=== PATIENT | female | born 1960 | race Caucasian/White ===

== ENCOUNTER 2018-10-07 10:14 | Emergency (ER) | payer SELFPAY ==
[2018-10-07 10:21] VITALS: BP 101/66
--- NOTE | 2018-10-07 10:26 | ER Document Report ---
ED Medical Screen (RME) - General Chief Complaint: Fall Injury Stated Complaint: HIP PAIN Time Seen by Provider: 10/07/18 10:24 Mode of Arrival: Wheelchair Information source: Patient TRAVEL OUTSIDE OF THE [place] IN LAST 30 DAYS: No - HPI Patient complains to provider of: fall Onset: Just prior to arrival - pt. pushed to the ground by 2 large dogs earlier this am. No bites. Animal control contacted - Related Data Allergies/Adverse Reactions: No Known Allergies Allergy (Verified 10/07/18 10:15) Physical Exam - Vital signs Vitals: Temp Pulse Resp BP Pulse Ox 97.5 F 66 18 101/66 97 10/07/18 10:20 10/07/18 10:20 10/07/18 10:20 10/07/18 10:20 10/07/18 10:20 Course - Vital Signs Vital signs: Temp Pulse Resp BP Pulse Ox 97.5 F 66 18 101/66 97 10/07/18 10:20 10/07/18 10:20 10/07/18 10:20 10/07/18 10:20 10/07/18 10:20
--- NOTE | 2018-10-07 11:19 | RADIOLOGY REPORT (SQ) ---
EXAM DESCRIPTION: HIP RIGHT AP/LATERAL; RIBS RIGHT W/PA CHEST; KNEE RIGHT 3 VIEWS COMPLETED DATE/TIME: 10/07/2018 11:06 am REASON FOR STUDY: fall COMPARISON: None. FINDINGS: Chest and ribs: Four views chest and right ribs for detail. No clinically localizing inf ormation. Lungs clear. No pneumothorax. No rib fracture. Three views right knee: Degenerative spurring throughout, particularly patellofemoral. No fracture or effusion. Osteopenic. Two views right hip: AP pelvis, frog lateral right hip. Degenerative narrowing left hip. Right hip looks relatively intact with only mild spurring. No fracture or bone lesion. TECHNICAL DOCUMENTATION: JOB ID: [id number] Reading location - IP/workstation name: [email or web address]
--- NOTE | 2018-10-07 11:19 | RADIOLOGY REPORT (SQ) ---
EXAM DESCRIPTION: HIP RIGHT AP/LATERAL; RIBS RIGHT W/PA CHEST; KNEE RIGHT 3 VIEWS COMPLETED DATE/TIME: 10/07/2018 11:06 am REASON FOR STUDY: fall COMPARISON: None. FINDINGS: Chest and ribs: Four views chest and right ribs for detail. No clinically localizing inf ormation. Lungs clear. No pneumothorax. No rib fracture. Three views right knee: Degenerative spurring throughout, particularly patellofemoral. No fracture or effusion. Osteopenic. Two views right hip: AP pelvis, frog lateral right hip. Degenerative narrowing left hip. Right hip looks relatively intact with only mild spurring. No fracture or bone lesion. TECHNICAL DOCUMENTATION: JOB ID: [id number] Reading location - IP/workstation name: [email or web address]
--- NOTE | 2018-10-07 11:19 | RADIOLOGY REPORT (SQ) ---
EXAM DESCRIPTION: HIP RIGHT AP/LATERAL; RIBS RIGHT W/PA CHEST; KNEE RIGHT 3 VIEWS COMPLETED DATE/TIME: 10/07/2018 11:06 am REASON FOR STUDY: fall COMPARISON: None. FINDINGS: Chest and ribs: Four views chest and right ribs for detail. No clinically localizing inf ormation. Lungs clear. No pneumothorax. No rib fracture. Three views right knee: Degenerative spurring throughout, particularly patellofemoral. No fracture or effusion. Osteopenic. Two views right hip: AP pelvis, frog lateral right hip. Degenerative narrowing left hip. Right hip looks relatively intact with only mild spurring. No fracture or bone lesion. TECHNICAL DOCUMENTATION: JOB ID: [id number] Reading location - IP/workstation name: [email or web address]
--- NOTE | 2018-10-07 11:50 | ER Document Report ---
ED Fall - General Chief Complaint: Fall Injury Stated Complaint: HIP PAIN Time Seen by Provider: 10/07/18 10:24 Mode of Arrival: Wheelchair Information source: Patient TRAVEL OUTSIDE OF THE [place] IN LAST 30 DAYS: No - HPI Notes: Patient is a 58-year-old female that presents to the emergency department for chief complaint of fall. Patient states prior to arrival in the ED today she was out for her morning dog went to dogs came and jumped on her. They pushed her down to the ground she landed on the right side. She states she did hit her head but denies any loss of consciousness. She is complaining of a headache located on the right side of her head. She denies any numbness weakness or vision changes. She denies any confusion nausea or vomiting. She is also complaining of pain in her right rib cage, right hip and right knee. Past Medical History: Negative Past Surgical History: Hysterectomy, bladder sling Social History: Denies drugs alcohol and tobacco Family History: Reviewed and noncontributory for presenting illness Allergies: Reviewed, see documented allergy list. REVIEW OF SYSTEMS: CONSTITUTIONAL : No fever No chills No diaphoresis No recent illness EENT: No vision changes No congestion No sore throat CARDIOVASCULAR: No chest pain No palpitations RESPIRATORY: No shortness of breath No cough No difficulty breathing GASTROINTESTINAL: No abdominal pain No nausea No vomiting No diarrhea GENITOURINARY: No dysuria No hematuria No difficulty urinating MUSCULOSKELETAL: Right knee pain Right rib pain Right hip pain No arm pain SKIN: No rashes No lesions LYMPHATIC: No swollen, enlarged glands. NEUROLOGICAL: No lightheadedness headache No weakness No paresthesias PSYCHIATRIC: No anxiety No depression PHYSICAL EXAMINATION: Vital signs reviewed, nursing noted reviewed. GENERAL: Well-appearing, well-nourished and in no acute distress. HEAD: Atraumatic, normocephalic. Mild tenderness to right parietal region with no fluctuance or cephalhematoma EYES: Eyes appear normal, extraocular movements intact, sclera anicteric, conjunctiva are normal. ENT: nares patent, oropharynx clear without exudates. Moist mucous membranes. NECK: Normal range of motion, supple without lymphadenopathy LUNGS: Breath sounds clear to auscultation bilaterally and equal. No wheezes rales or rhonchi. Lateral lower right rib tenderness to palpation with no overlying crepitus or flail segments HEART: Regular rate and rhythm without murmurs ABDOMEN: Soft, nontender, normoactive bowel sounds. No rebound, guarding, or rigidity. No masses appreciated. EXTREMITIES: Nontender, good range of motion, no pitting or edema. Pelvis stable. Lateral right hip tenderness to palpation with normal range of motion. Anterior right patellar tenderness with normal range of motion of right knee and no joint effusion. No right knee laxity. Antalgic gait. NEUROLOGICAL: No focal neurological deficits. Moves all extremities spontaneously Motor and sensory grossly intact on exam. PSYCH: Normal mood, normal affect. SKIN: Warm, Dry, normal turgor, small nonbleeding abrasion to anterior right knee. No ecchymosis. - Related data Allergies/Adverse Reactions: No Known Allergies Allergy (Verified 10/07/18 10:15) Past Medical History - General Information source: Patient - Social History Smoking Status: Never Smoker Chew tobacco use (# tins/day): No Frequency of alcohol use: None Drug Abuse: None Family History: Reviewed & Not Pertinent Patient has suicidal ideation: No Patient has homicidal ideation: No Renal/ Medical History: Denies: Hx Peritoneal Dialysis Review of Systems - Review of Systems Notes: Dictated Physical Exam - Vital signs Vitals: Temp Pulse Resp BP Pulse Ox 97.5 F 66 18 101/66 97 10/07/18 10:20 10/07/18 10:20 10/07/18 10:20 10/07/18 10:20 10/07/18 10:20 - Notes Notes: Dictated Course - Re-evaluation Re-evalutation: 10/07/18 11:49 Vitals reviewed. Nursing notes reviewed. Patient is able to ambulate with antalgic gait. X-ray of the ribs, hip and knee show no acute fracture. She does report head injury with acute headache therefore CT scan of the brain was ordered 10/07/18 12:51 CT brain shows no acute pathology or ICH. Patient given percocet and zofran for symptomatic management. She will follow with her primary care doctor for reevaluation in the next few days. Discharged home in stable condition. Head CT 10/07/18 11:45 IMPRESSION: NORMAL BRAIN CT WITHOUT CONTRAST. EVIDENCE OF ACUTE STROKE: NO. - Vital Signs Vital signs: Temp Pulse Resp BP Pulse Ox 97.5 F 66 18 101/66 97 10/07/18 10:20 11/11/18 10:20 10/07/18 10:20 10/07/18 10:20 10/07/18 10:20 - Diagnostic Test Radiology reviewed: Image reviewed, Reports reviewed Discharge - Discharge Clinical Impression: Abrasion, right knee, initial encounter Closed head injury Qualifiers: Encounter type: initial encounter Qualified Code(s): S09.90XA - Unspecified injury of head, initial encounter Contusion of right hip Qualifiers: Encounter type: initial encounter Qualified Code(s): S70.01XA - Contusion of right hip, initial encounter Contusion of right knee Qualifiers: Encounter type: initial encounter Qualified Code(s): S80.01XA - Contusion of right knee, initial encounter Contusion of rib on right side Qualifiers: Encounter type: initial encounter Qualified Code(s): S20.211A - Contusion of right front wall of thorax, initial encounter Condition: Stable Disposition: HOME, SELF-CARE Instructions: Contusion ([facility], [facility]), Family Physicians / Practices, Head Injury Precautions ([facility], 1928[facility]1983) Additional Instructions: Please return to the emergency department if you have any worsening, or concern of your symptoms. Please return to the emergency department if you develop chest pain, difficulty breathing, severe abdominal pain, or ongoing vomiting. Please follow-up with your primary care physician in 2-3 days and any other recommended physicians. If prescribed, take all medications as directed. If you have any questions or concerns do not hesitate to return the emergency department for evaluation. [] Prescriptions: Ibuprofen [Ibu] 800 mg PO Q6 #25 tablet
--- NOTE | 2018-10-07 12:47 | RADIOLOGY REPORT (SQ) ---
EXAM DESCRIPTION: CT HEAD WITHOUT COMPLETED DATE/TIME: 10/07/2018 12:20 pm REASON FOR STUDY: head injury COMPARISON: None. TECHNIQUE: Axial images acquired through the brain without intravenous contrast. Images reviewed wi th bone, brain and subdural windows. Additional sagittal and coronal reconstructions were generated. Images stored on PACS. All CT scanners at this facility use dose modulation, iterative reconstruction, and/or weight based d osing when appropriate to reduce radiation dose to as low as reasonably achievable (ALARA). [facility]: Dose Right [facility]: CareDose [facility]: Dose Right [facility]: Teradose 4D [facility]: Red Seraphim RADIATION DOSE: CT Rad equipment meets quality standard of care and radiation dose reduction techniq ues were employed. CTDIvol: 53.2 mGy. DLP: 1044 mGy-cm. mGy. LIMITATIONS: None. FINDINGS: VENTRICLES: Normal size and contour. CEREBRUM: No masses. No hemorrhage. No midline shift. No evidence for acute infarction. Normal gra y/white matter differentiation. No areas of low density in the white matter. CEREBELLUM: No masses. No hemorrhage. No alteration of density. No evidence for acute infarction. EXTRAAXIAL SPACES: No fluid collections. No masses. ORBITS AND GLOBE: No intra- or extraconal masses. Normal contour of globe without masses. CALVARIUM: No fracture. PARANASAL SINUSES: No fluid or mucosal thickening. SOFT TISSUES: No mass or hematoma. OTHER: No other significant finding. IMPRESSION: NORMAL BRAIN CT WITHOUT CONTRAST. EVIDENCE OF ACUTE STROKE: NO. COMMENT: Quality ID # [id number]: Final reports with documentation of one or more dose reduction techniques (e.g., Automated exposure control, adjustment of the mA and/or kV according to patient size, use of iterative reconstruction technique) TECHNICAL DOCUMENTATION: JOB ID: [id number] [employer]- All Rights Reserved Reading location - IP/workstation name: [email or web address]
[2018-10-07] MEDS ORDERED: OXYCODONE-ACETAMINOPHEN 5-325 MG TABLET PO ONE (12:49)
[2018-10-07] MEDS ORDERED: ONDANSETRON HCL INJ/PF 4 MG/2 ML SDV IV ONE (12:50)
[2018-10-07] MEDS ORDERED: ONDANSETRON 4 MG TAB.RAPDIS ONE (12:51)
== END 2018-10-07 13:30 | disposition home or self-care (01) ==
LOC: ER 10:14
DX: S70.01XA Contusion of right hip, initial encounter (principal); S80.01XA Contusion of right knee, initial encounter; S20.211A Contusion of right front wall of thorax, initial encounter; S09.90XA Unspecified injury of head, initial encounter; R51 Headache; M25.551 Pain in right hip; M25.561 Pain in right knee; R07.81 Pleurodynia; W54.1XXA Struck by dog, initial encounter; Y93.02 Activity, running
CPT/HCPCS: 99284; 73502; 73562; 71101; 70450; S0119